=== PATIENT | female | born 1985 | race Caucasian/White ===

== ENCOUNTER 2021-06-21 07:33 | Emergency (ER) | payer OTHER ==
[~2021-06-21] VITALS: Ht 167.6 cm; Wt 80.7 kg
[2021-06-21] MEDS ORDERED: ESCITALOPRAM OX20 MG (14:37)
[2021-06-21] MEDS ORDERED: ATARAX10 MG PO (14:37)
== END 2021-06-21 17:13 | disposition home or self-care (01) ==
LOC: ER 07:33 → EDBD 12:28 → ER 17:13
DX: F10.129 Alcohol abuse with intoxication, unspecified (principal)